=== PATIENT | female | born 1960 | race Caucasian/White ===

== ENCOUNTER 2019-11-24 06:00 | Emergency (ER) | payer BC, OTHER ==
[2019-11-24 07:28] VITALS: BP 128/78; PULSE 81; TEMP 98.8; BMI 21.7
[2019-11-24] MEDS ORDERED: ALPRAZolam 0.25 MG TABLET PO ONE (07:33)
--- NOTE | 2019-11-25 20:33 | PDOC ---
History of Present Illness - General Chief Complaint: Psychiatric Stated Complaint: ANXIETY History Source: Patient Exam Limitations: No Limitations - History of Present Illness Initial Comments: 11/25/19 20:30 This chart was written on 11/24 patient was seen in the ED on 11/23 however the computers are down so the chart was not written until the following day. Patient is a 59-year-old female who comes in complaining of anxiety. Patient has a history of anxiety for which she does not take any medications. Patient said her anxiety has been cycling more and she was unable to sleep last night. Patient does not have a time for the therapist. Patient denied any other complaints. Allergies: as per nursing notes Past Medical History: none Social history: Lives with family. No smoking. No alcohol. No illicit drugs. Surgical history: None General: No fevers or chills, no weakness, no weight loss HEENT: No change in vision. No sore throat,. No ear pain CardioVascular: no chest discomfort. No shortness of breath Respiratory:No cough, or wheezing. Gastrointestinal: no nausea, vomiting, diarrhea or constipation, No rectal bleeding Genitourinary: No dysuria, hematuria, or frequency Musculoskeletal: No joint or muscle pain or swelling Neurologic: No headache, vertigo, dizziness or loss of consciousness Psychiatric: Anxiety Skin: No rashes or easy bruising Endocrine: no increased thirst or abnormal weight change Allergic: no skin or latex allergy All other systems reviewed and normal Exam: General: Well-nourished well-developed individual, no acute distress very anxious HEENT: Throat: Normal, tonsils normal, no erythema or exudate Neck: Supple, no meningeal signs, no lymphadenopathy Eyes::Pupils equal reactive and round, extraocular motion intact Chest: Nontender to palpation Cardiac: S1-S2 normal, regular rate and rhythm, no murmurs rubs or gallops Respiratory: Lungs clear to auscultation bilateral Abdomen: Soft, nondistended, normal bowel sounds, there is no tenderness on palpation diffusely Extremities: Warm, dry, no cyanosis, clubbing, or edema Skin: No rashes Neuro: Alert and oriented x3, CN II - XII intact, nonfocal exam with normal strength, normal sensation, normal reflexes, normal gait, Psych: Normal mood and affect Assessment and plan: This is a 59-year-old female with anxiety who was given some Xanax and felt better and discharged home. Patient will follow-up with her primary care doctor and a therapist. Past History - Medical History Allergies/Adverse Reactions: Allergies Allergy/AdvReac Type Severity Reaction Status Date / Time codeine Allergy Verified 11/24/19 07:23 Home Medications: Ambulatory Orders Levothyroxine [Synthroid -] 88 mcg PO DAILY 06/28/14 COPD: No Thyroid Disease: Yes (HYPO) - Psycho-Social/Smoking History Smoking History: Never smoked Have you smoked in the past 12 months: No Information on smoking cessation initiated: No - Substance Abuse Hx (Audit-C & DAST Scrn) How often the patient has a drink containing alcohol: Never Score: In Men: 4 or > Positive; In Women: 3 or > Positive: 0 Screen Result (Pos requires Nsg. Audit-10AR): Negative *Physical Exam - Vital Signs Last Vital Signs Temp Pulse Resp BP Pulse Ox 98.8 F 81 18 128/78 100 11/24/19 06:25 11/24/19 06:25 11/24/19 06:25 11/24/19 06:25 11/24/19 06:25 ED Treatment Course - Medications Given in the ED: ED Medications Discontinued Medications Generic Name Dose Route Start Last Admin Trade Name Freq PRN Reason Stop Dose Admin Alprazolam 0.5 mg 11/24/19 07:33 11/24/19 07:35 Xanax - PO 11/24/19 07:34 0.5 mg ONCE ONE Administration Discharge - Discharge Information Problems reviewed: Yes Clinical Impression/Diagnosis: Anxiety Condition: Good Disposition: HOME - Admission No - Follow up/Referral - Patient Discharge Instructions Additional Instructions: Follow-up with a therapist Return to the emergency department immediately with ANY new, persistent or worsening symptoms. Continue any medications as previously prescribed by your physician. You should follow up with your primary doctor as soon as possible regarding today's emergency department visit. . Please make sure your doctor reviews the results of your emergency evaluation. Thank you for coming to the Emergency Department today for your care. It was a pleasure to see you today. Please note that your evaluation is INCOMPLETE until you follow-up with your doctor. - Post Discharge Activity Work/Back to School Note: My Personal Safety Plan
== END 2019-11-24 06:50 | disposition home or self-care (01) ==
LOC: FER 06:00
DX: F41.9 Anxiety disorder, unspecified (principal)
CPT/HCPCS: 99283-25

== ENCOUNTER 2021-01-21 04:30 | Emergency (ER) | payer OTHER ==
[2021-01-21] MEDS ORDERED: SODIUM CHLORIDE 0.9% 500 ML INFUS.BAG IV ONE (04:35)
[2021-01-21] MEDS ORDERED: MAG HYDROX/AL HYDROX/SIMETH 30 ML UNIT-DOSE CUP PO ONE (04:35)
[2021-01-21] MEDS ORDERED: ACETAMINOPHEN 1000 MG/100 ML VIAL IVPB ONE (04:36)
[2021-01-21] MEDS ORDERED: ACETAMINOPHEN INJECTION 100 ML IVPB ONE (04:40)
[2021-01-21] MEDS ORDERED: MAG HYDROX/AL HYDROX/SIMETH 30 ML UNIT-DOSE CUP ONE (04:40)
[2021-01-21 05:01] VITALS: TEMP 98.7; BMI 25.3
[2021-01-21 06:12] LABS: EPI CELLS >36 /uL (0-25.1); HYALINE CASTS 7 /uL (0-3.1); URINE APPEARANCE CLOUDY; URINE BACTERIA 261 /uL (0-1359); URINE BILIRUBIN NEGATIVE (NEGATIVE); URINE COLOR YELLOW; URINE GLUCOSE (UA) NEGATIVE (NEGATIVE); URINE KETONE TRACE (NEGATIVE); URINE LEUK ESTERASE 1+ (NEGATIVE); URINE NITRITE NEGATIVE (NEGATIVE); URINE PROTEIN 1+ (NEGATIVE); URINE WBC 58 /uL (0-25.8)
[2021-01-21 06:15] LABS: BASO % 0.6 % (0-2.0); EOS % 3.7 % (0-4.5); HEMATOCRIT 37.1 % (32.4-45.2); HEMOGLOBIN 12.6 GM/dL (10.7-15.3); LYMPH % 41.7 % (8-40); MCH 31.3 pg (25.7-33.7); MEAN CELL VOLUME 92.1 fl (80-96); MEAN PLT VOLUME 8.3 fl (7.5-11.1); MONO % 6.4 % (3.8-10.2); NEUT % 47.6 % (42.8-82.8); PLATELET COUNT 192 10^3/uL (134-434); RBC 4.02 M/mm3 (3.60-5.2); RDW 14.3 % (11.6-15.6); WHITE BLOOD COUNT 4.9 K/mm3 (4.0-10.0)
[2021-01-21 06:19] VITALS: PULSE 59
[2021-01-21 06:49] VITALS: BP 110/65
[2021-01-21 07:01] LABS: ALBUMIN 3.2 g/dl (3.4-5.0); ALK PHOS 57 U/L (45-117); ANION GAP 10 MMOL/L (8-16); BILIRUBIN,TOTAL 0.3 mg/dL (0.2-1); BLOOD UREA NITROGEN 13.7 mg/dL (7-18); CALCIUM 8.7 mg/dL (8.5-10.1); CHLORIDE 108 mmol/L (98-107); CO2 24 mmol/L (21-32); CREATININE 0.8 mg/dL (0.55-1.3); GLUCOSE,RANDOM 121 mg/dL (74-106); SGOT/AST 18 U/L (15-37); SGPT/ALT 30 U/L (13-61); SODIUM 142 mmol/L (136-145); TOT PROT 6.3 g/dl (6.4-8.2)
[2021-01-21 09:45] LABS: URINE RBC 59.5 /uL (0-23.9)
== END 2021-01-21 07:16 | disposition home or self-care (01) ==
LOC: FER 04:30
PROC: 3E0333Z Introduction of Anti-inflammatory into Peripheral Vein, Percutaneous Approach (ICD-10-PCS; principal; 2021-01-21)
DX: R14.1 Gas pain (principal)
CPT/HCPCS: 36415; 80053; 81003; 82550; 84484; 85025; 87086; 93005; 99284-25; J0131

== ENCOUNTER 2021-08-14 08:43 | Day surgery (SDC) | payer OTHER ==
[2021-08-09 09:52] VITALS: BMI 22.6
[2021-08-14] MEDS: TROPICAMIDE 1% OPHTH SOLN 15 ML BOTTLE ONE ×3 (09:05→09:15)
[2021-08-14] MEDS: CIPROFLOXACIN 0.3% EYE DROPS 5 ML BOTTLE ONE ×3 (09:05→09:15)
[2021-08-14] MEDS: CYCLOPENTOLATE 2% OPHTH SOLN 2 ML BOTTLE ONE ×3 (09:05→09:15)
[2021-08-14] MEDS: PHENYLEPHRINE 2.5% OPHTH SOLN 15 ML BOTTLE ONE ×3 (09:05→09:15)
[2021-08-14] MEDS ORDERED: BSS (NA/CA/MG/K) BALANCED SALT SOLUTION OPHTH SOLN 15 ML BOTTLE ONE (09:29)
[2021-08-14] MEDS ORDERED: CARBACHOL 0.01% INTRA-OCULAR 1.5 ML VIAL ONE (09:29)
[2021-08-14] MEDS ORDERED: NEO/POLYMYX B SULF/DEXAMETH OPHTHALMIC 5ML BOTTLE ONE (09:29)
[2021-08-14] MEDS ORDERED: TETRACAINE 0.5% OPHTH SOLN 2 ML BOTTLE ONE (09:29)
[2021-08-14] MEDS ORDERED: MIDAZOLAM HCL 2 MG/2 ML SINGLE DOSE VIAL ONE (09:50)
[2021-08-14 10:58] VITALS: PULSE 58; TEMP 97.8
[2021-08-14 11:00] VITALS: BP 116/68
== END 2021-08-14 11:10 | disposition home or self-care (01) ==
LOC: FASU 08:43
PROVIDERS: ATTEND Ophthalmology
PROC: 08RJ3JZ Replacement of Right Lens with Synthetic Substitute, Percutaneous Approach (ICD-10-PCS; principal; 2021-08-14 10:01)
DX: H26.8 Other specified cataract (principal)
CPT/HCPCS: 66984; V2632

== ENCOUNTER 2021-08-28 09:15 | Day surgery (SDC) | payer OTHER ==
[2021-08-23 13:02] VITALS: BMI 22.6
[2021-08-28] MEDS: PHENYLEPHRINE 2.5% OPHTH SOLN 15 ML BOTTLE ONE ×3 (09:45→09:55)
[2021-08-28] MEDS: TROPICAMIDE 1% OPHTH SOLN 15 ML BOTTLE ONE ×3 (09:45→09:55)
[2021-08-28] MEDS: CIPROFLOXACIN 0.3% EYE DROPS 5 ML BOTTLE ONE ×3 (09:45→09:55)
[2021-08-28] MEDS: CYCLOPENTOLATE 2% OPHTH SOLN 2 ML BOTTLE ONE ×3 (09:45→09:55)
[2021-08-28] MEDS ORDERED: EPINEPHrine/PF 1 MG/1 ML (1:1,000) AMPULE ONE (10:05)
[2021-08-28] MEDS ORDERED: NEO/POLYMYX B SULF/DEXAMETH OPHTHALMIC 5ML BOTTLE ONE (10:05)
[2021-08-28] MEDS ORDERED: TETRACAINE 0.5% OPHTH SOLN 2 ML BOTTLE ONE (10:05)
[2021-08-28] MEDS ORDERED: CARBACHOL 0.01% INTRA-OCULAR 1.5 ML VIAL ONE (10:05)
[2021-08-28] MEDS ORDERED: LIDOCAINE 1% P/F 10 MG/ML VIAL ONE (10:05)
[2021-08-28] MEDS ORDERED: BSS (NA/CA/MG/K) BALANCED SALT SOLUTION OPHTH SOLN 15 ML BOTTLE ONE (10:05)
[2021-08-28] MEDS ORDERED: MIDAZOLAM HCL 2 MG/2 ML SINGLE DOSE VIAL ONE (10:20)
[2021-08-28 11:33] VITALS: BP 107/69; PULSE 73; TEMP 98
== END 2021-08-28 11:45 | disposition home or self-care (01) ==
LOC: FASU 09:15
PROVIDERS: ATTEND Ophthalmology
PROC: 08RK3JZ Replacement of Left Lens with Synthetic Substitute, Percutaneous Approach (ICD-10-PCS; principal; 2021-08-28 10:25)
DX: H26.8 Other specified cataract (principal)
CPT/HCPCS: 66984; V2632

== ENCOUNTER 2021-11-16 03:04 | Emergency (ER) | payer OTHER ==
[2021-11-16 03:39] VITALS: BP 99/63; PULSE 62; RESP 16; TEMP 97.5; BMI 22.6
[2021-11-16 05:11] LABS: HEMATOCRIT 37.7 % (32.4-45.2); HEMOGLOBIN 12.3 GM/dL (10.7-15.3); LYMPH % 17.2 % (8-40); MCH 30.5 pg (25.7-33.7); MCHC 32.7 g/dl (32.0-36.0); MEAN CELL VOLUME 93.2 fl (80-96); MEAN PLT VOLUME 8.3 fl (7.5-11.1); MONO % 6.9 % (3.8-10.2); NEUT % 72.9 % (42.8-82.8); PLATELET COUNT 200 10^3/uL (134-434); RBC 4.05 M/mm3 (3.60-5.2); RDW 14.2 % (11.6-15.6)
[2021-11-16 05:29] LABS: CHLORIDE 107 mmol/L (98-107); SODIUM 141 mmol/L (136-145)
[2021-11-16 05:31] LABS: CALCIUM 8.7 mg/dL (8.5-10.1)
[2021-11-16 05:32] LABS: ALBUMIN 3.4 g/dl (3.4-5.0); ANION GAP 6 MMOL/L (8-16); BLOOD UREA NITROGEN 15.4 mg/dL (7-18); CO2 28 mmol/L (21-32); GLUCOSE,RANDOM 143 mg/dL (74-106)
[2021-11-16 05:35] LABS: CREATININE 0.7 mg/dL (0.55-1.3); SGOT/AST 21 U/L (15-37); SGPT/ALT 29 U/L (13-61)
[2021-11-16 05:37] LABS: BILIRUBIN,TOTAL 0.3 mg/dL (0.2-1)
[2021-11-16 05:38] LABS: ALK PHOS 62 U/L (45-117)
== END 2021-11-16 06:06 | disposition home or self-care (01) ==
LOC: FER 03:04
DX: R11.0 Nausea (principal)
CPT/HCPCS: 36415; 80053; 84484; 85025; 93005; 99283-25